=== PATIENT | male | born 1960 | race African-American/Black ===

== ENCOUNTER 2018-09-28 03:45 | Emergency (ER) | payer SELFPAY ==
[~2018-09-28] VITALS: Ht 188 cm; Wt 100.0 kg
[2018-09-28 05:12] LABS: BASOPHILS % 0.6 % (0.0-2.0); HEMATOCRIT. 43.8 % (42.0-52.0); HEMOGLOBIN. 14.7 g/dL (14.0-18.0); LYMPHOCYTES % 21.8 % (20.0-50.0); MEAN CORPUSCULAR HEMOGLOBIN 31.6 pg (28.0-32.0); MEAN PLATELET VOLUME 8.1 fl (7.4-10.4); MONOCYTES % 11.1 % (2.0-8.0); NEUTROPHILS % 62.5 % (40.0-76.0); PLATELET 167 x1000/uL (130-400); RED BLOOD CELL COUNT 4.66 mill/uL (4.7-6.1)
[2018-09-28] MEDS ORDERED: DIPHENHYDRAMINE 50MG/ML VIAL IM ONE (05:15)
[2018-09-28 05:20] LABS: CHLORIDE 110 mEq/L (98-107)
[2018-09-28 05:26] LABS: ETHANOL BLOOD < 10 mg/dL
[2018-09-28 08:21] LABS: *AMPHETAMINES SCREEN URINE NEGATIVE (NEGATIVE); *BARBITURATES SCREEN URINE NEGATIVE (NEGATIVE); *BENZODIAZEPINES SCREEN URINE NEGATIVE (NEGATIVE)
[2018-09-28 08:22] LABS: *COCAINE SCREEN URINE PRESUMTIVE POSITIVE (NEGATIVE); CANNABINOID URINE SCREEN NEGATIVE (NEGATIVE); METHADONE URINE SCREEN NEGATIVE (NEGATIVE); OPIATES URINE SCREEN NEGATIVE (NEGATIVE); PHENCYCLIDINE URINE SCREEN NEGATIVE (NEGATIVE)
[2018-09-28 09:38] VITALS: BP 148/111
== END 2018-09-28 10:00 | disposition home or self-care (01) ==
LOC: ER 03:45
DX: R07.89 Other chest pain (principal); R10.13 Epigastric pain; F14.10 Cocaine abuse, uncomplicated; F17.200 Nicotine dependence, unspecified, uncomplicated
CPT/HCPCS: 36415; 71045; 73130; 80053; 80305; 83690; 83880; 84484; 85025; 93005; 99284; G0482

== ENCOUNTER 2022-07-10 10:47 | Inpatient (IN) | payer MEDICARE ==
[~2022-07-10] VITALS: Ht 182.9 cm; Wt 76.7 kg
[2022-07-10 11:17] LABS: BG BASE EXCESS -1.9 mmol/L (-2.0-2.0); BG CARBOXYHEMOGLOBIN 0.8 % (0.5-1.5); BG DEOXYHEMOGLOBIN 0.4 % (0.0-5.0); BG FRACTION INSPIRED OXYGEN 40; BG HCO3 ACT 19.7 mmol/L (22.0-26.0); BG METHEMOGLOBIN 0.2 % (0.0-1.5); BG OXYGEN SATURATION 99.6 % (92.0-98.5); BG OXYHEMOGLOBIN 98.6 % (94.0-97.0); BG PH 7.498 (7.350-7.450); BG PO2 201.9 mmHg (75.0-100.0); BG SAMPLE SITE LEFT BRACHIAL; BG TOTAL HEMOGLOBIN 13.7 g/dL (12.0-18.0); BG VENT MODE MASK - BIPAP
[2022-07-10 11:24] LABS: BASOPHILS % 0.5 % (0.0-2.0); EOSINOPHILS % 0.1 % (0.0-5.0); HEMATOCRIT. 39.8 % (42.0-52.0); HEMOGLOBIN. 13.8 g/dL (14.0-18.0); LYMPHOCYTES % 10.1 % (20.0-50.0); MEAN CORPUSCULAR HEMOGLOBIN 31.4 pg (28.0-32.0); MEAN CORPUSCULAR VOLUME 90.7 fL (80.0-94.0); MEAN PLATELET VOLUME 7.5 fl (7.4-10.4); MONOCYTES % 2.3 % (2.0-8.0); PLATELET 231 x1000/uL (130-400); RED BLOOD CELL COUNT 4.39 mill/uL (4.7-6.1); RED CELL DISTRIBUTION WIDTH 13.9 % (11.6-14.6)
[2022-07-10 11:35] LABS: CHLORIDE 108 mEq/L (98-107)
[2022-07-10] MEDS ORDERED: TRAMADOL 50MG TABLET PO PRN (13:30)
[2022-07-10] MEDS ORDERED: CLONIDINE 0.1MG TABLET PO PRN (13:30)
[2022-07-10] MEDS ORDERED: IPRATROPIUM/ALBUTEROL 0.5-3(2.5)MG/3ML NEB HHN PRN (13:30)
[2022-07-10] MEDS ORDERED: LORAZEPAM 2MG/ML CPJ IV PRN (13:30)
[2022-07-10] MEDS ORDERED: DOCUSATE SODIUM 100MG CAPSULE PO PRN (13:30)
[2022-07-10] MEDS ORDERED: MAGNESIUM/ALUMINUM HYDROXIDE/SIMETHICONE 30ML UDC PO PRN (13:30)
[2022-07-10] MEDS ORDERED: GUAIFENESIN 200MG/10ML SUGAR FREE UDC PO PRN (13:30)
[2022-07-10] MEDS ORDERED: ONDANSETRON HCL 4MG/2ML INJ IV PRN (13:30)
[2022-07-10] MEDS ORDERED: ACETAMINOPHEN 325MG TABLET PO PRN (13:30)
[2022-07-10] MEDS ORDERED: PIPERACILLIN/TAZOBACTAM 3.375 G in DEXTROSE 5% WATER 50 ML IV SCH (14:00)
[2022-07-10] MEDS: HYDROCODONE/ACETAMINOPHEN 5/325MG TABLET PO PRN (14:30)
[2022-07-10] MEDS: LISINOPRIL 20MG TABLET PO SCH (14:50)
[2022-07-10] MEDS: AMLODIPINE 10MG TABLET PO SCH (14:50)
[2022-07-10] MEDS ORDERED: PIPERACILLIN/TAZ 3.375G PREMIX 50 ML IV NR (15:15)
[2022-07-10] MEDS ORDERED: NALOXONE HCL 0.4MG/ML VIAL IV PRN (15:15)
[2022-07-10] MEDS: ENOXAPARIN 40MG/0.4ML SYR SUBCUT SCH (15:25)
[2022-07-10 17:00] VITALS: BP 153/108
[2022-07-10 20:50] VITALS: BP 109/76
[2022-07-10] MEDS: PIPERACILLIN/TAZOBACTAM 3.375 G in DEXTROSE 5% WATER 50 ML IV SCH (22:00)
[2022-07-11] MEDS: HYDROCODONE/ACETAMINOPHEN 5/325MG TABLET PO PRN ×2 (02:27→21:35)
[2022-07-11 04:00] VITALS: BP 129/94
[2022-07-11 05:30] LABS: *AMPHETAMINES SCREEN URINE NEGATIVE (NEGATIVE); *BARBITURATES SCREEN URINE NEGATIVE (NEGATIVE); *BENZODIAZEPINES SCREEN URINE NEGATIVE (NEGATIVE); *COCAINE SCREEN URINE PRESUMTIVE POSITIVE (NEGATIVE); CANNABINOID URINE SCREEN NEGATIVE (NEGATIVE); METHADONE URINE SCREEN NEGATIVE (NEGATIVE); OPIATES URINE SCREEN PRESUMTIVE POSITIVE (NEGATIVE); PHENCYCLIDINE URINE SCREEN NEGATIVE (NEGATIVE)
[2022-07-11] MEDS: PIPERACILLIN/TAZOBACTAM 3.375 G in DEXTROSE 5% WATER 50 ML IV SCH ×3 (06:00→21:30)
[2022-07-11 08:00] VITALS: BP 127/83
[2022-07-11] MEDS: AMLODIPINE 10MG TABLET PO SCH (09:40)
[2022-07-11] MEDS: LISINOPRIL 20MG TABLET PO SCH (09:40)
[2022-07-11 11:05] LABS: BASOPHILS % 0.6 % (0.0-2.0); EOSINOPHILS % 0.3 % (0.0-5.0); HEMATOCRIT. 35.3 % (42.0-52.0); HEMOGLOBIN. 12.1 g/dL (14.0-18.0); LYMPHOCYTES % 13.5 % (20.0-50.0); MEAN CORPUSCULAR HEMOGLOBIN 31.3 pg (28.0-32.0); MEAN CORPUSCULAR VOLUME 91.5 fL (80.0-94.0); MEAN PLATELET VOLUME 7.3 fl (7.4-10.4); MONOCYTES % 7.8 % (2.0-8.0); NEUTROPHILS % 77.8 % (40.0-76.0); PLATELET 222 x1000/uL (130-400); RED BLOOD CELL COUNT 3.86 mill/uL (4.7-6.1)
[2022-07-11 11:15] LABS: CHLORIDE 111 mEq/L (98-107)
[2022-07-11 11:33] LABS: HDL CHOLESTEROL 55 mg/dL (40-59); LDL CHOLESTEROL 99 mg/dL (5-100)
[2022-07-11 12:00] VITALS: BP 118/69
[2022-07-11] MEDS ORDERED: FOLIC ACID 1 MG, THIAMINE HCL 100 MG, MVI, ADULT NO.1 10 ML in DEXTROSE 5% WATER 1,000 ML IV SCH ×4 (12:00)
[2022-07-11] MEDS: ENOXAPARIN 40MG/0.4ML SYR SUBCUT SCH (14:16)
[2022-07-11 16:00] VITALS: BP 100/69
[2022-07-11 20:00] VITALS: BP 108/62
[2022-07-12 00:05] VITALS: BP 98/50
[2022-07-12 04:00] VITALS: BP 128/68
[2022-07-12] MEDS: PIPERACILLIN/TAZOBACTAM 3.375 G in DEXTROSE 5% WATER 50 ML IV SCH ×2 (06:00→13:34)
[2022-07-12] MEDS: LISINOPRIL 20MG TABLET PO SCH (09:00)
[2022-07-12] MEDS: AMLODIPINE 10MG TABLET PO SCH (09:00)
[2022-07-12] MEDS: HYDROCODONE/ACETAMINOPHEN 5/325MG TABLET PO PRN (10:47)
[2022-07-12 12:00] VITALS: BP 119/84
[2022-07-12] MEDS: ENOXAPARIN 40MG/0.4ML SYR SUBCUT SCH (13:34)
[2022-07-12 14:01] VITALS: BP 114/84
== END 2022-07-12 15:45 | disposition home or self-care (01) | DRG 205 ==
LOC: ER 10:47 → 7WST 12:37 → EDBEDREQ 12:49 → EDBEDREQTM 12:49 → EDBEDREQSVC 14:57 → ENRESERV 15:35
PROVIDERS: ADMIT Hospitalist; ATTEND Hospitalist
PROC: 5A09357 Assistance with Respiratory Ventilation, Less than 24 Consecutive Hours, Continuous Positive Airway Pressure (ICD-10-PCS; principal; 2022-07-10)
DX: J68.0 Bronchitis and pneumonitis due to chemicals, gases, fumes and vapors (principal); J96.01 Acute respiratory failure with hypoxia; N17.9 Acute kidney failure, unspecified; I10 Essential (primary) hypertension; F43.10 Post-traumatic stress disorder, unspecified; F20.9 Schizophrenia, unspecified; F17.200 Nicotine dependence, unspecified, uncomplicated; I16.0 Hypertensive urgency; F19.10 Other psychoactive substance abuse, uncomplicated; F10.20 Alcohol dependence, uncomplicated; Z90.49 Acquired absence of other specified parts of digestive tract; E16.2 Hypoglycemia, unspecified; N18.9 Chronic kidney disease, unspecified; Z91.14 Patient's other noncompliance with medication regimen
CPT/HCPCS: 36415; 36600; 71045; 80053; 80061; 80305; 82140; 82375; 82805; 83880; 84145; 84484; 85025; 87426; 93005; 93306; 93970; 94660; 99291; C9803; J1650; J2060; J2543; J3411; J3490; J7060; J7070

== ENCOUNTER 2022-10-06 15:49 | Inpatient (IN) | payer MEDICARE ==
[~2022-10-06] VITALS: Ht 182.9 cm; Wt 86.9 kg
[2022-10-06 16:30] LABS: CLARITY URINE CLEAR (CLEAR); COLOR URINE YELLOW (YELLOW); KETONES URINE NEGATIVE (NEGATIVE); LEUKOCYTE ESTERASE URINE NEGATIVE (NEGATIVE); NITRITE URINE NEGATIVE (NEGATIVE); OCCULT BLOOD URINE NEGATIVE (NEGATIVE); PH URINE 8.5 (4.5-8.0); PROTEIN URINE NEGATIVE (NEGATIVE); SPECIFIC GRAVITY URINE 1.008 (1.005-1.030); UROBILINOGEN URINE 0.2 E.U./dL (0.2-1.0)
[2022-10-06] MEDS ORDERED: VISCOUS LIDOCAINE 2% 15 ML UDC PO STA (16:42)
[2022-10-06] MEDS ORDERED: MAGNESIUM/ALUMINUM HYDROXIDE/SIMETHICONE 30ML UDC PO STA (16:42)
[2022-10-06] MEDS ORDERED: NITROGLYCERIN 0.4MG TABLET SL SL PRN ×2 (16:45→22:00)
[2022-10-06] MEDS ORDERED: ASPIRIN 81MG TABLET PO ONE (16:45)
[2022-10-06 17:14] LABS: BASOPHILS % 0.8 % (0.0-2.0); EOSINOPHILS % 3.9 % (0.0-5.0); HEMATOCRIT. 38.6 % (42.0-52.0); LYMPHOCYTES % 22.2 % (20.0-50.0); MEAN CORPUSCULAR HEMOGLOBIN 31.1 pg (28.0-32.0); MEAN CORPUSCULAR VOLUME 92.3 fL (80.0-94.0); MEAN PLATELET VOLUME 7.8 fl (7.4-10.4); MONOCYTES % 9.5 % (2.0-8.0); NEUTROPHILS % 63.6 % (40.0-76.0); PLATELET 187 x1000/uL (130-400); RED BLOOD CELL COUNT 4.18 mill/uL (4.7-6.1); RED CELL DISTRIBUTION WIDTH 14.6 % (11.6-14.6)
[2022-10-06 17:20] LABS: CHLORIDE 109 mEq/L (98-107)
[2022-10-06 17:31] LABS: ETHANOL BLOOD < 10 mg/dL
[2022-10-06] MEDS ORDERED: ASPIRIN 81MG TABLET PO NR (18:30)
[2022-10-06] MEDS ORDERED: MAGNESIUM/ALUMINUM HYDROXIDE/SIMETHICONE 30ML UDC PO NR (18:30)
[2022-10-06] MEDS ORDERED: IPRATROPIUM/ALBUTEROL 0.5-3(2.5)MG/3ML NEB HHN PRN (22:00)
[2022-10-06] MEDS: PANTOPRAZOLE 40MG DR TABLET PO SCH (22:00)
[2022-10-06] MEDS ORDERED: DOCUSATE SODIUM 100MG CAPSULE PO PRN (22:00)
[2022-10-06] MEDS ORDERED: CLONIDINE 0.1MG TABLET PO PRN (22:00)
[2022-10-06] MEDS ORDERED: SODIUM CHLORIDE 0.9% 1,000 ML IV ONE (22:00)
[2022-10-06] MEDS ORDERED: MAGNESIUM/ALUMINUM HYDROXIDE/SIMETHICONE 30ML UDC PO PRN (22:00)
[2022-10-06] MEDS ORDERED: GUAIFENESIN 200MG/10ML SUGAR FREE UDC PO PRN (22:00)
[2022-10-06] MEDS ORDERED: ACETAMINOPHEN 325MG TABLET PO PRN ×2 (22:00)
[2022-10-06] MEDS ORDERED: ONDANSETRON HCL 4MG/2ML INJ IV PRN (22:00)
[2022-10-07 05:37] LABS: BASOPHILS % 0.6 % (0.0-2.0); EOSINOPHILS % 3.7 % (0.0-5.0); HEMATOCRIT. 35.6 % (42.0-52.0); HEMOGLOBIN. 12.2 g/dL (14.0-18.0); LYMPHOCYTES % 35.5 % (20.0-50.0); MEAN CORPUSCULAR HEMOGLOBIN 31.2 pg (28.0-32.0); MEAN CORPUSCULAR VOLUME 91.1 fL (80.0-94.0); MEAN PLATELET VOLUME 7.7 fl (7.4-10.4); MONOCYTES % 9.3 % (2.0-8.0); NEUTROPHILS % 50.9 % (40.0-76.0); PLATELET 197 x1000/uL (130-400); RED BLOOD CELL COUNT 3.91 mill/uL (4.7-6.1); RED CELL DISTRIBUTION WIDTH 14.3 % (11.6-14.6)
[2022-10-07 05:46] LABS: CHLORIDE 110 mEq/L (98-107)
[2022-10-07 06:02] LABS: CREATINE KINASE 112 IU/L (39-308)
[2022-10-07 06:15] LABS: HDL CHOLESTEROL 77 mg/dL (40-59); LDL CHOLESTEROL 106 mg/dL (5-100); T4 FREE 0.96 ng/dL (0.76-1.46); TOTAL IRON BINDING CAPACITY 271 ug/dL (250-450)
[2022-10-07 08:25] LABS: FOLIC ACID (FOLATE) SERUM 8.5 ng/mL (>5.38)
[2022-10-07] MEDS: PANTOPRAZOLE 40MG DR TABLET PO SCH ×2 (08:50→21:29)
[2022-10-07] MEDS: AMLODIPINE 10MG TABLET PO SCH (09:00)
[2022-10-07] MEDS: NICOTINE 21MG PATCH TD SCH (09:00)
[2022-10-07] MEDS: SUCRALFATE 1 G/10 ML UDC PO SCH ×5 (09:49→21:29)
[2022-10-07] MEDS: ENOXAPARIN 40MG/0.4ML SYR SUBCUT SCH (09:49)
[2022-10-07] MEDS: ASPIRIN 81MG EC TABLET PO SCH (09:49)
[2022-10-07 12:00] VITALS: BP 128/86
[2022-10-07 13:00] VITALS: BP 128/80
[2022-10-07 16:00] VITALS: BP 146/95
[2022-10-07 20:00] VITALS: BP 134/100
[2022-10-07] MEDS ORDERED: ATORVASTATIN CALCIUM 40MG TABLET PO SCH (21:00)
[2022-10-08] VITALS: BP 120/81
[2022-10-08 04:00] VITALS: BP 105/81
[2022-10-08] MEDS: SUCRALFATE 1 G/10 ML UDC PO SCH (06:56)
[2022-10-08] MEDS: PANTOPRAZOLE 40MG DR TABLET PO SCH (06:56)
[2022-10-08 08:00] VITALS: BP 108/80
[2022-10-08] MEDS: ENOXAPARIN 40MG/0.4ML SYR SUBCUT SCH (08:07)
[2022-10-08] MEDS: NICOTINE 21MG PATCH TD SCH (08:08)
[2022-10-08] MEDS: ASPIRIN 81MG EC TABLET PO SCH (08:08)
[2022-10-08] MEDS: AMLODIPINE 10MG TABLET PO SCH (08:08)
[2022-10-08 10:01] VITALS: BP 110/80
== END 2022-10-08 10:30 | disposition home or self-care (01) | DRG 392 ==
LOC: ER 15:49 → MICUSO 19:08 → EDBEDREQ 19:12 → EDBEDREQTM 19:12 → 8WST 10-07 12:10
PROVIDERS: ADMIT Hospitalist; ATTEND Hospitalist
DX: K21.9 Gastro-esophageal reflux disease without esophagitis (principal); N17.9 Acute kidney failure, unspecified; R07.89 Other chest pain; E78.5 Hyperlipidemia, unspecified; J44.9 Chronic obstructive pulmonary disease, unspecified; F20.9 Schizophrenia, unspecified; I10 Essential (primary) hypertension; F10.20 Alcohol dependence, uncomplicated; F14.90 Cocaine use, unspecified, uncomplicated; F17.210 Nicotine dependence, cigarettes, uncomplicated; Z79.899 Other long term (current) drug therapy; Z90.49 Acquired absence of other specified parts of digestive tract
CPT/HCPCS: 36415; 71045; 76700; 80053; 80061; 80320; 81003; 82550; 82607; 82728; 82746; 83036; 83540; 83550; 83880; 84439; 84443; 84481; 84484; 85025; 93005; 93970; 99285; J1650; G0480

== ENCOUNTER 2023-02-23 02:56 | Emergency (ER) | payer MEDICARE ==
[~2023-02-23] VITALS: Ht 177.8 cm; Wt 105.0 kg
[2023-02-23] MEDS ORDERED: VISCOUS LIDOCAINE 2% 15 ML UDC PO STA (03:17)
[2023-02-23] MEDS ORDERED: DICYCLOMINE 10 MG/5 ML ORAL SYR PO STA (03:17)
[2023-02-23] MEDS ORDERED: MAGNESIUM/ALUMINUM HYDROXIDE/SIMETHICONE 30ML UDC PO STA (03:17)
[2023-02-23 03:36] LABS: BASOPHILS % 0.9 % (0.0-2.0); EOSINOPHILS % 2.8 % (0.0-5.0); HEMATOCRIT. 37.3 % (42.0-52.0); HEMOGLOBIN. 12.8 g/dL (14.0-18.0); LYMPHOCYTES % 22.7 % (20.0-50.0); MEAN CORPUSCULAR HEMOGLOBIN 31.1 pg (28.0-32.0); MEAN CORPUSCULAR VOLUME 90.9 fL (80.0-94.0); MONOCYTES % 11.1 % (2.0-8.0); NEUTROPHILS % 62.5 % (40.0-76.0); PLATELET 196 x1000/uL (130-400); RED CELL DISTRIBUTION WIDTH 14.7 % (11.6-14.6)
[2023-02-23 03:44] LABS: CHLORIDE 113 mEq/L (98-107)
[2023-02-23] MEDS ORDERED: VISCOUS LIDOCAINE 2% 15 ML UDC PO NR ×2 (03:45→06:15)
[2023-02-23] MEDS ORDERED: MAGNESIUM/ALUMINUM HYDROXIDE/SIMETHICONE 30ML UDC PO NR ×3 (03:45→06:15)
[2023-02-23 03:50] LABS: ETHANOL BLOOD < 10 mg/dL
[2023-02-23] MEDS ORDERED: OMEP40CA20 MT (05:45)
[2023-02-23 06:30] VITALS: BP 115/85
== END 2023-02-23 06:47 | disposition home or self-care (01) ==
LOC: ER 02:56
DX: R10.13 Epigastric pain (principal); F10.229 Alcohol dependence with intoxication, unspecified; J44.9 Chronic obstructive pulmonary disease, unspecified; E78.00 Pure hypercholesterolemia, unspecified; I10 Essential (primary) hypertension; Y90.0 Blood alcohol level of less than 20 mg/100 ml
CPT/HCPCS: 36415; 74176; 80053; 80320; 85025; 93005; 99285; G0480

== ENCOUNTER 2023-02-26 23:54 | Emergency (ER) | payer SELFPAY ==
[~2023-02-26] VITALS: Ht 172.7 cm; Wt 73.0 kg
[~2023-02-26 23:54] MED LIST: OMEP40CA20 MT
[2023-02-27] MEDS ORDERED: SODIUM CHLORIDE 0.9% 1000ML BAG (SEPSIS BOLUS) IV ONE (01:15)
[2023-02-27] MEDS ORDERED: CLONIDINE 0.1MG TABLET PO NR (01:15)
[2023-02-27 01:47] LABS: BASOPHILS % 0.2 % (0.0-2.0); EOSINOPHILS % 2.5 % (0.0-5.0); HEMATOCRIT. 43.7 % (42.0-52.0); HEMOGLOBIN. 14.3 g/dL (14.0-18.0); LYMPHOCYTES % 13.5 % (20.0-50.0); MEAN CORPUSCULAR HEMOGLOBIN 30.4 pg (28.0-32.0); MEAN PLATELET VOLUME 8.2 fl (7.4-10.4); MONOCYTES % 7.3 % (2.0-8.0); NEUTROPHILS % 76.5 % (40.0-76.0); PLATELET 180 x1000/uL (130-400); RED CELL DISTRIBUTION WIDTH 14.8 % (11.6-14.6)
[2023-02-27 02:01] LABS: *AMPHETAMINES SCREEN URINE NEGATIVE (NEGATIVE); *BARBITURATES SCREEN URINE NEGATIVE (NEGATIVE); *BENZODIAZEPINES SCREEN URINE NEGATIVE (NEGATIVE); *COCAINE SCREEN URINE PRESUMTIVE POSITIVE (NEGATIVE); CANNABINOID URINE SCREEN NEGATIVE (NEGATIVE); METHADONE URINE SCREEN NEGATIVE (NEGATIVE); OPIATES URINE SCREEN NEGATIVE (NEGATIVE); PHENCYCLIDINE URINE SCREEN NEGATIVE (NEGATIVE)
[2023-02-27 02:07] LABS: CHLORIDE 114 mEq/L (98-107)
[2023-02-27 02:14] LABS: ETHANOL BLOOD < 10 mg/dL (-10)
[2023-02-27 04:00] VITALS: BP 131/86
[2023-02-27] MEDS ORDERED: IBUP-2029 MT (06:59)
== END 2023-02-27 07:21 | disposition home or self-care (01) ==
LOC: ER 23:54
DX: R10.9 Unspecified abdominal pain (principal); R07.89 Other chest pain; F14.10 Cocaine abuse, uncomplicated; F10.229 Alcohol dependence with intoxication, unspecified; J44.9 Chronic obstructive pulmonary disease, unspecified; E78.00 Pure hypercholesterolemia, unspecified; I10 Essential (primary) hypertension; F20.9 Schizophrenia, unspecified; Z90.49 Acquired absence of other specified parts of digestive tract; F17.200 Nicotine dependence, unspecified, uncomplicated
CPT/HCPCS: 36415; 70450; 80053; 80305; 80320; 82140; 83690; 85025; 96360; 96361; 99285; J7030; Z7610; G0480

== ENCOUNTER 2024-09-06 05:03 | Emergency (ER) | payer MEDICARE ==
[~2024-09-06] VITALS: Ht 182.9 cm; Wt 118.0 kg
[~2024-09-06 05:03] MED LIST changes: +IBUP-2029 MT
[2024-09-06 05:11] VITALS: BP 146/80; PULSE 90; RESP 18; TEMP 98.3; O2SAT 99
[2024-09-06 06:18] LABS: CLARITY URINE CLEAR (CLEAR); COLOR URINE YELLOW (YELLOW); GLUCOSE URINE NEGATIVE (NEGATIVE); KETONES URINE TRACE (NEGATIVE); LEUKOCYTE ESTERASE URINE NEGATIVE (NEGATIVE); NITRITE URINE NEGATIVE (NEGATIVE); OCCULT BLOOD URINE NEGATIVE (NEGATIVE); PROTEIN URINE TRACE (NEGATIVE); SPECIFIC GRAVITY URINE 1.011 (1.005-1.030)
[2024-09-06 06:29] LABS: *AMPHETAMINES SCREEN URINE NEGATIVE (NEGATIVE); *BARBITURATES SCREEN URINE NEGATIVE (NEGATIVE); *BENZODIAZEPINES SCREEN URINE NEGATIVE (NEGATIVE); *COCAINE SCREEN URINE PRESUMPTIVE POSITIVE (NEGATIVE); CANNABINOID URINE SCREEN NEGATIVE (NEGATIVE); ECSTASY MDMA SCREEN URINE NEGATIVE (NEGATIVE); METHADONE URINE SCREEN NEGATIVE (NEGATIVE); OPIATES URINE SCREEN NEGATIVE (NEGATIVE); PHENCYCLIDINE URINE SCREEN NEGATIVE (NEGATIVE)
[2024-09-06 06:40] LABS: SQUAMOUS EPITHELIAL CELL URINE FEW /lpf (RARE/1+)
[2024-09-06 06:41] LABS: BACTERIA URINE NONE SEEN; RBC URINE 0-2 /hpf (0-2); WBC URINE 0-2 /hpf (0-2)
[2024-09-06 06:55] LABS: CHLORIDE 108 mEq/L (98-107); POTASSIUM 3.9 mEq/L (3.5-5.1); SODIUM 140 mEq/L (136-145)
[2024-09-06 06:56] LABS: CALCIUM 9.8 mg/dL (8.7-10.4); CARBON DIOXIDE 23 mEq/L (21-32)
[2024-09-06 07:01] LABS: CREATININE 1.5 mg/dL (0.6-1.3); GLUCOSE 101 mg/dL (70-105)
[2024-09-06 07:02] LABS: UREA NITROGEN BLOOD 14 mg/dL (9-23)
[2024-09-06 07:03] LABS: ALANINE AMINOTRANSFERASE 11 IU/L (10-49); ALBUMIN 4.6 g/dL (3.2-4.8); ASPARTATE AMINOTRANSFERASE 19 IU/L (<34); BILIRUBIN DIRECT 0.3 mg/dL (<=3.0)
[2024-09-06 07:04] LABS: BILIRUBIN TOTAL 0.9 mg/dL (0.1-1.0); PROTEIN TOTAL 7.9 g/dL (6.0-8.3)
[2024-09-06 07:33] LABS: ETHANOL BLOOD < 10 mg/dL (<10)
[2024-09-06 07:56] LABS: BASOPHILS % 0.6 % (0.0-2.0); EOSINOPHILS % 1.8 % (0.0-5.0); HEMATOCRIT. 42.8 % (42.0-52.0); HEMOGLOBIN. 14.6 g/dL (14.0-18.0); LYMPHOCYTES % 16.8 % (20.0-50.0); MEAN CORPUSCULAR HEMOGLOBIN 31.9 pg (28.0-32.0); MEAN CORPUSCULAR HGB CONC 34.2 g/dL (31.0-37.0); MEAN CORPUSCULAR VOLUME 93.3 fL (80.0-94.0); MEAN PLATELET VOLUME 8.5 fl (7.4-10.4); MONOCYTES % 7.7 % (2.0-8.0); NEUTROPHILS % 73.1 % (40.0-76.0); PLATELET 194 x1000/uL (130-400); RED BLOOD CELL COUNT 4.58 mill/uL (4.7-6.1); RED CELL DISTRIBUTION WIDTH 13.8 % (11.6-14.6); WHITE BLOOD COUNT 6.5 x1000/uL (4.5-11.0)
== END 2024-09-06 14:35 | disposition home or self-care (01) ==
LOC: ER 05:36
DX: R10.30 Lower abdominal pain, unspecified (principal); E78.00 Pure hypercholesterolemia, unspecified; F20.9 Schizophrenia, unspecified; I10 Essential (primary) hypertension; J44.9 Chronic obstructive pulmonary disease, unspecified; F14.90 Cocaine use, unspecified, uncomplicated; Z90.49 Acquired absence of other specified parts of digestive tract; Z79.899 Other long term (current) drug therapy; Z88.8 Allergy status to other drugs, medicaments and biological substances
CPT/HCPCS: 36415; 80048; 80076; 80305; 80320; 81003; 82962; 85025; 99282; 99283; G0480